=== PATIENT | female | born 1965 | race American Indian/Alaskan Native ===

== ENCOUNTER 2017-03-28 08:13 | Day surgery (SDC) | payer BC ==
[2017-03-24 12:27] LABS: Basophils % (Auto) 0.3 % (0.0-1.8); Eosinophils % (Auto) 0.4 % (0.0-4.3); Hematocrit 38.5 % (30.3-42.9); Mean Corpuscular HGB Conc 34 % (30-34); Mean Corpuscular Hemoglobin 33 pg (28-32); Mean Corpuscular Volume 99 fl (79-97); Platelet Count 203 K/mm3 (140-440); Red Cell Distribution Width 15.9 % (13.2-15.2); White Blood Count 4.7 K/mm3 (4.5-11.0)
--- NOTE | 2017-03-24 12:36 | Anesthesia Consultation ---
Anesthesia Consult and Med Hx Date of service: 03/24/17 - Airway Anesthetic Teeth Evaluation: Good, Partials ROM Head & Neck: Adequate Mental/Hyoid Distance: Adequate Mallampati Class: Class II Intubation Access Assessment: Probably Good - Pulmonary Exam CTA: Yes - Cardiac Exam Cardiac Exam: RRR - Pre-Operative Health Status ASA Pre-Surgery Classification: ASA2 Proposed Anesthetic Plan: General - Pulmonary Hx Smoking: No Hx Asthma: No Hx Sleep Apnea: No - Cardiovascular System Hx Hypertension: Yes - Central Nervous System Hx Seizures: No CVA: No Hx Psychiatric Problems: No - Endocrine Hx Renal Disease: No Hx End Stage Renal Disease: No Hx Cirrhosis: No Hx Liver Disease: No Hx Non-Insulin Dependent Diabetes: Yes Hx Thyroid Disease: Yes (S/P THYROIDECTOMY) Hx Hypothyroidism: Yes - Hematic Hx Anemia: Yes - Other Systems Hx Cancer: No Hx Obesity: No
[2017-03-24 12:43] LABS: Anion Gap 22 mmol/L; BUN/Creatinine Ratio 21.42; Blood Urea Nitrogen 15 mg/dL (7-17); Calcium 8.7 mg/dL (8.4-10.2); Carbon Dioxide 20 mmol/L (22-30); Chloride 96.2 mmol/L (98-107); Glucose 149 mg/dL (65-100); Potassium 3.9 mmol/L (3.6-5.0); Sodium 134 mmol/L (137-145)
--- NOTE | 2017-03-27 18:19 | History and Physical Report ---
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 of genital herpes: no Partner hx. of genital herpes: no Hx of STD: None Active Medications (reviewed today): FARXIGA TABS (DAPAGLIFLOZIN PROPANEDIOL TABS) GLYBURIDE TABS (GLYBURIDE TABS) OXYCODONE-ACETAMINOPHEN 5-325 MG TABS (OXYCODONE-ACETAMINOPHEN) 1-2po q6h VITAMIN D 1000 UNIT TABS (CHOLECALCIFEROL) VICTOZA SOLN (LIRAGLUTIDE SOLN) NASONEX SUSP (MOMETASONE FUROATE SUSP) SYNTHROID TABS (LEVOTHYROXINE SODIUM TABS) SPIRONOLACTONE TABS (SPIRONOLACTONE TABS) MULTIVITAMINS ORAL CAPS (MULTIPLE VITAMIN) IRON CR-TABS (FERROUS FUMARATE CR-TABS) SINGULAIR TABS (MONTELUKAST SODIUM TABS) MEDROXYPROGESTERONE ACETATE 10 MG TABS (MEDROXYPROGESTERONE ACETATE) 1 po bid Current Allergies (reviewed today): IBUPROFEN (Critical) DEMEROL (Critical) * SEAFOOD (Critical) Past Medical History: Reviewed history from 03/23/2015 and no changes required: Hypothyroidism PCOS seasonal allergies Diabetes, Type 2 Anemia Noninvasive peripheral artery studies on LE's = decreased flow, increase risk for stasis and dvt:NO ESTROGEN BRCA negative Past Surgical History: Reviewed history from 04/01/2016 and no changes required: Myomectomy thyroidectomy corneal transplant D&C: (04/21/2011) Hysteroscopy: (04/21/2011) Knee Arthroscopy (10/17/2011)(L) d/t torn meniscus cataract (2016) Family History Summary: Reviewed history Last on 03/17/2014 and no changes required:03/27/2017 Other family member - Has No Family History of Biliary Tract Cancer - Entered On : 12/28/2016 Other family member - Has No Family History of Breast Cancer - Entered On: 2016 Other family member - Has No Family History of Brain Cancer - Entered On: 2016 Other family member - Has No Family History of Colon Cancer - Entered On: 2016 Other family member - Has No Family History of DVT/PE on OCP - Entered On: 2016 Other family member - Has No Family History of Kidney/Urinary Tract Cancer - Entered On: 12/28/2016 Other family member - Has No Family History of Pancreatic Cancer - Entered On: Other family member - Has No Family History of Stomach Cancer - Entered On: 2016 Other family member - Has No Family History of Small Bowel Cancer - Entered On: 12/28/2016 Other family member - Has No Family History of Uterine Cancer - Entered On: 2016 General Comments - FH: Family History of Ovarian Cancer:PGM, maternal great aunt No Family History of Colon Cancer No Family History of Breast Cancer Social History: Reviewed history from 04/01/2016 and no changes required: Patient is single Smoking History: Patient has never smoked. Risk Factors: Smoked Tobacco Use: Never smoker Smokeless Tobacco Use: Never Passive smoke exposure: no Drug use: no HIV high-risk behavior: no Alcohol use: no Exercise: yes Seatbelt use: 100 % Previous Tobacco Use: Signed On 01/02/2017 Smoked Tobacco Use: Never smoker Passive smoke exposure: no Drug use: no HIV high-risk behavior: no Previous Alcohol Use: Signed On 01/02/2017 Alcohol use: no Exercise: yes Times per week: 2 times per wk Type of Exercise: walking,run Seatbelt use: 100 % Colonoscopy History: Date of Last Colonoscopy: 03/25/2015 Mammogram History: Date of Last Mammogram: 06/17/2016 PAP Smear History: Date of Last PAP Smear: 04/01/2016 Review of Systems General Denies fever, chills, sweats, anorexia, fatigue, weakness, malaise, weight loss and sleep disorder. Complains of abnormal vaginal bleeding. Denies vaginal discharge, incontinence, dysuria, hematuria, urinary frequency, amenorrhea, menorrhagia, pelvic pain, genital sores, decreased libido , painful periods, painful sex, urinary urgency, hot flashes, vaginal dryness, vaginal itching and vaginal odor. CV Denies chest pains, palpitations, syncope, dyspnea on exertion, orthopnea, PND and peripheral edema. Resp Denies cough, dyspnea at rest, excessive sputum, hemoptysis, wheezing and pleurisy. GI Denies nausea, vomiting, diarrhea, constipation, change in bowel habits, abdominal pain, melena, hematochezia, jaundice, gas/bloating, indigestion/ heartburn, dysphagia and odynophagia. Endo Denies cold intolerance, heat intolerance, polydipsia, polyphagia, polyuria and unusual weight change. Breast Denies left breast lump, right breast lump, nipple discharge, bloody discharge from nipple, breast pain, abnormal mammogram and breast enlargement. MS Denies back pain, joint pain, joint swelling, muscle cramps, muscle weakness, stiffness, arthritis, sciatica, restless legs, leg pain at night and leg pain with exertion. Derm Denies rash, itching, dryness and suspicious lesions. Neuro Denies paralysis, paresthesias, headache, seizures, tremors, vertigo, transient blindness, frequent falls, frequent headaches and difficulty walking. Psych Denies depression, anxiety, irritability and mood swings. Eyes Denies blurring, diplopia, irritation, discharge, vision loss, eye pain and photophobia. ENT Denies earache, ear discharge, tinnitus, decreased hearing, nasal congestion, nosebleeds, sore throat and hoarseness. Allergy Denies urticaria, allergic rash, hay fever and recurrent infections. Heme Denies abnormal bruising, bleeding and enlarged lymph nodes. Physical Exam Appearance: well developed, well nourished, no acute distress Other Exams Breast exam: no masses or nipple discharge Lungs: no rales, rhonchi, or wheezes Heart: S1, S2, no murmur, rub, or gallop Abdomen: soft, non-tender, no masses Appearance: obese Skin: no ulcers, xanthomas Lymph: no cervical, axillary, or inguinal adenopathy Extremities: normal alignment, no joint enlargement, crepitus, masses or tenderness; normal tone and strength Genitourinary Exam Vulva: normal, no lesions or discharge Urethral meatus: normal size and location, no lesions or discharge Urethra: no discharge Bladder: no cystocele Vagina: normal appearance, no discharge, lesions. No evidence of cystocele or rectocele. Cervix: normal appearance, no lesions, no discharge Uterus: fixed Adnexa: unable to palpate due to obesity Impression & Recommendations: Problem # 1: Excessive and frequent menstruation with irregular cycle (ICD- 626.6) (AST70-E05.1) Diagnosis explained to patient . Questions answered. Discussed with patient various medical, surgical and radioloigal therapies common for treatment: Hormonal/medical therapy, fibroid embolization, removal of fibroids or hysterectomy. She completed a UFE and the recommendation by the radiologist was to perform a hysteroscopy D&C to remove residual tissue. She desires conservative therapy in the form of Hysteroscopy D&C with endometrial ablation and other indicated procedures She was informed her bleeding may persist or recur. Patient voiced understanding and agrees with plan of care Consent reviewed and signed . Possible laparoscopy or laparotomy explained to patient. The risks and alternatives for this surgery were reviewed with the patient. She was informed of possible bleeding, infection, injury to bowel, bladder, ureters or other adjacent organs. The patient was instructed/informed the following: The normal length of hospital stay for this procedure. Nothing to eat or drink after midnight the evening prior to surgery. Clear liquids the day before surgery. Pre-op instruction sheets given. Wound care instructions given. Infection precautions reviewed, patient to call for any signs or symptoms of infection. The usual discomforts associated with this procedure were detailed. Proper use of pain medicines was reviewed. Patient was given ample opportunity to have all her questions answered before signing informed consent. Problem # 2: Endometrial mass (ICD-236.0) (YIG12-R97.0) Problem # 3: Fibroids of uterus; Intramural (ICD-218.1) (JXL41-T77.1) Medications Added to Medication List This Visit: 1) Farxiga Tabs (Dapagliflozin propanediol tabs) 2) Glyburide Tabs (Glyburide tabs) 3) Oxycodone-acetaminophen 5-325 Mg Tabs (Oxycodone-acetaminophen) .... 1-2po q6h Prescriptions: OXYCODONE-ACETAMINOPHEN 5-325 MG TABS (OXYCODONE-ACETAMINOPHEN) 1-2po q6h #15 x 0 Entered and Authorized by: Semea Panchal MD Method used: Print then Give to Patient RxID: [id number] Medications and Allergies Allergies Allergy/AdvReac Type Severity Reaction Status Date / Time meperidine HCl [From Demerol] Allergy Hives Unverified 03/21/17 12:30 ibuprofen [From Motrin] AdvReac Swelling Unverified 03/21/17 12:30 OF FACE Home Medications Medication Instructions Recorded Confirmed Last Taken Type Levothyroxine [Synthroid] 125 mcg PO QAM 05/14/15 03/21/17 05/13/15 History Liraglutide [Victoza 2-Ward] 1.8 mg PO DAILY 05/14/15 03/21/17 05/13/15 History Spironolactone [Aldactone] 100 mg PO QDAY 05/14/15 03/21/17 05/14/15 History Ferrous Sulfate [Feosol] 325 mg PO QDAY 03/21/17 03/21/17 Unknown History Glimepiride [Amaryl] 4 mg PO DAILY 03/21/17 03/21/17 Unknown History RX: Dapagliflozin Propanediol (Nf) 10 mg PO DAILY 03/21/17 03/21/17 Unknown History [Farxiga (Nf)] Active Meds: Active Medications Famotidine (Pepcid) 20 mg PO PREOP NR Stop: 03/28/17 23:01 Sodium Chloride (Nacl 0.9% 1000 Ml) 1,000 mls @ 75 mls/hr IV DIRECT LAUREN Cefazolin Sodium (Ancef/Sterile Water 2 Gm/20 Ml) 2 gm in 20 mls @ 80 mls/hr IV PREOP NR PRN Reason: Protocol Stop: 03/28/17 23:59 Midazolam HCl (Versed) 2 mg IV PREOP NR Stop: 03/28/17 23:59 Exam Vital Signs Temp Pulse Resp BP 98.3 F 76 14 120/78 03/24/17 12:00 03/24/17 12:00 03/24/17 12:00 03/24/17 12:00 Results - Labs 03/24/17 11:52 03/24/17 11:52 Assessment and Plan - Patient Problems (1) Menometrorrhagia Status: Chronic (2) Endometrial mass Status: Chronic (3) Fibroids Status: Chronic Qualifiers: Uterine leiomyoma location: U
[~2017-03-28 08:13] MED LIST: ANCEF/STERILE WATER 2 GM/20 ML 2 GM/20 ML SYRINGE IV NR; NACL 0.9% 1000 ML 1,000 ML IV SCH; PEPCID PO NR; VERSED IV NR
[2017-03-28] MEDS ORDERED: NACL BACTERIOSTATIC INFILTRATI ONE (09:19)
[2017-03-28] MEDS ORDERED: DILAUDID ONE (10:44)
[2017-03-28] MEDS ORDERED: DIPRIVAN 10 MG/ML IV ONE (10:44)
[2017-03-28] MEDS ORDERED: XYLOCAINE MPF 2% ONE (10:45)
--- NOTE | 2017-03-28 10:57 | Anesthesia Day of Surgery ---
Anesthesia Day of Surgery - Day of Surgery Patient Examined: Yes Patient H&P Reviewed: Yes Patient is NPO: Yes
[2017-03-28] MEDS ORDERED: ePHEDrine SULFATE ONE (11:16)
[2017-03-28] MEDS ORDERED: NACL 0.9% IR ONE (11:45)
[2017-03-28] MEDS ORDERED: ZOFRAN ONE (11:49)
--- NOTE | 2017-03-28 12:13 | Discharge Summary ---
Providers - Providers Date of discharge: 03/28/17 Attending physician: FELIPE PENA Primary care physician: PONCE HERRERA Hospitalization Condition: Good Procedures: Hysteroscopy D&C Disposition: DISCHARGED TO HOME OR SELFCARE - Discharge Diagnoses (1) Menometrorrhagia Status: Chronic Comment: Spoke with patient and PACU. Operative findings and procedure explained. Questions were answered. Also spoke with patient's sister prior to speaking with patient. Operative findings and procedure was also explained to her. She was given postop instructions and precautions. (2) Endometrial mass Status: Chronic (3) Fibroids Status: Chronic Qualifiers: Uterine leiomyoma location: U Core Measure Documentation - Palliative Care Palliative Care/ Comfort Measures: Not Applicable - Core Measures Any of the following diagnoses?: none Exam - Constitutional Vitals: Temp Pulse Resp BP Pulse Ox 98 F 80 12 112/65 99 03/28/17 09:12 03/28/17 09:12 03/28/17 09:12 03/28/17 09:12 03/28/17 09:12 General appearance: Present: no acute distress - Neck Neck: Present: supple - Respiratory Respiratory effort: normal - Cardiovascular Rhythm: regular - Extremities Extremities: no ischemia, No edema - Abdominal General gastrointestinal: Present: soft, non-tender Plan Activity: other (No sex, no driving x3days) Weight Bearing Status: Non-Weight Bearing Diet: diabetic (eat small meals frequently) Special Instructions: no heavy lifting Follow up with: PONCE HERRERA MD [Primary Care Provider] - 7 Days FELIPE PENA MD [Staff Physician] - (as scheduled)
--- NOTE | 2017-03-28 12:34 | Operative Report ---
Operative Report Operative Report: Date of procedure: 03/28/2017 Pre-operative diagnosis: 1. Menometrorrhagia 2. Uterine fibroids status post uterine fibroid embolization Post-operative diagnosis: 1. Menometrorrhagia 2. Uterine fibroids status post uterine fibroid embolization 3. Distorted appearing endometrial cavity with possible submucosal fibroid 4. Possible scarring of posterior uterine cavity Procedure name(s): Dilation and curettage with hysteroscopy Surgeon: Seema Panchal MD Obiee Consultant: [] Anesthesia: General anesthesia Findings: Uterus was sounded to 9 cm. Possible left lateral submucosal fibroid. Irregular appearance to the posterior uterine cavity. Fundus of uterus appeared to be normal, tubal ostia were visualized. On initial introduction of the hysteroscope the right ostia was anterior as though the right anterior of the uterus was adhered to the anterior uterine wall. There appeared to be submucosal fibroid just superior to the internal os of the cervix noted on the left lateral aspect of the uterus. The posterior of the uterine cavity appeared to have irregular tissue possibly consistent with scarring from her previous myomectomy. The decision was made to attempt resection of the fibroid due to concerns for perforation into the lateral uterine vessels that may have necessitated emergency hysterectomy. Because of the distortion of the endometrial cavity the decision was made not to perform NovaSure ablation. Complications: None EBL: Minimal Distension fliud: Normal saline Fluid deficit: 0mL Procedure: After risks, benefits, complications, consequences and alternatives for this procedure were discussed with the patient, and she voiced her understanding and desires to proceed she was taken to the OR where general anesthesia was induced. She was placed in the dorsal lithotomy position. She was then prepped and draped in the usual sterile fashion. Timeout was performed. Aguiar catheter was introduced into the bladder. A bivalve speculum was introduced into the vagina. The anterior lip of the cervix was grasped with a single-tooth tenaculum, and the uterus was sounded to approximately 9 cm. The cervix was then progressively dilated to allow the diagnostic hysteroscope. The above findings were noted. Curettage was performed. Tissue was sent to pathology as a permanent. The hysteroscope was reintroduced into the uterine cavity. No obvious evidence of perforation was noted. All instruments were removed. No bleeding was noted from the tenaculum site. The patient tolerated the procedure well to recovery in stable condition. Counts were correct x3.
[2017-03-28] MEDS ORDERED: PERCOCET 5/325 PO PRN (12:47)
[2017-03-28 13:49] VITALS: BP 114/76
== END 2017-03-28 13:28 | disposition home or self-care (01) ==
LOC: OR 08:13
PROVIDERS: ATTEND Obstetrics & Gynecology
DX: N92.1 Excessive and frequent menstruation with irregular cycle (principal); I10 Essential (primary) hypertension; E11.9 Type 2 diabetes mellitus without complications; E03.9 Hypothyroidism, unspecified; D64.9 Anemia, unspecified; Z94.7 Corneal transplant status; Z98.890 Other specified postprocedural states
CPT/HCPCS: 36415; 58558; 80048; 81025; 82962; 85025; 86850; 86900; 86901; 88305; A4217; J0690; J1170; J2250; J2405; J2704; J7030

== ENCOUNTER 2017-04-25 10:07 | Outpatient (CLI) | payer BC ==
--- NOTE | 2017-04-25 13:23 | Cat Scan Report ---
CT scan of abdomen and pelvis without IV contrast: History: Abdominal pain. Findings: Normal lung bases. No pleural or pericardial effusion. Normal liver spleen pancreas and gallbladder. Normal adrenals kidney parenchyma and bladder. No free intraperitoneal fluid or air. Calcification in the uterus probably suggestive of fibroids. Gaseous colon with moderate volume stool in colon. No evidence of appendicitis or diverticulitis. No bowel distention. Impression: Probable peptic disease. Fibroid uterus. Gaseous colon with stool in colon.
== END 2017-04-25 10:08 | disposition home or self-care (01) ==
LOC: CT 10:07
PROVIDERS: ATTEND Internal Medicine
DX: D25.9 Leiomyoma of uterus, unspecified (principal); R63.4 Abnormal weight loss
CPT/HCPCS: 74176

== ENCOUNTER 2017-05-02 13:39 | Outpatient (CLI) | payer BC ==
--- NOTE | 2017-05-02 15:16 | Mammography Report ---
Bilateral diagnostic mammogram: Compared to 04/11/16. Sonographic examination of abdomen mass. History: Left breast mass approximate 3:00 position. Findings: Heterogeneous breast parenchyma bilaterally without significant interval change. No mass or microcalcification. Normal axilla. Sonographic examination of the palpable area does not reveal any cystic or solid mass. Impression: Benign findings. Annual followup recommended. BI-RADS CATEGORY: 2 = Benign ACR BI-RADS MAMMOGRAPHIC CODES: 0 = Needs additional imaging evaluation; 1 = Negative; 2 = Benign; 3 = Probably benign; 4 = Suspicious; 5 = Malignant; 6 = Known biopsy-proven malignancy COMMENT: 1. Dense breast tissue, i.e., adenosis, fibrocystic changes, etc., may obscure an underlying neoplasm. 2. Approximately 10% of cancers are not detected with mammography. 3. A negative mammography report should not delay biopsy if a clinically suspicious mass is present. COMMENT: Patient follow-up letters are generated in [employer].
== END 2017-05-02 13:40 | disposition home or self-care (01) ==
LOC: MAMMO 13:39
PROVIDERS: ATTEND Obstetrics & Gynecology
DX: N63 Unspecified lump in breast (principal); I10 Essential (primary) hypertension; D25.9 Leiomyoma of uterus, unspecified
CPT/HCPCS: 76642; G0204; 77066

== ENCOUNTER 2017-07-10 07:22 | Outpatient (CLI) | payer BC ==
--- NOTE | 2017-07-10 11:27 | Magnetic Resonance Report ---
MR PELVIS WITH AND WITHOUT CONTRAST HISTORY: Leiomyoma of uterus TECHNIQUE: Multiple T1 and T2-weighted images with and without fat suppression. Post contrast T1 fat sat in all 3 planes. FINDINGS: The uterus is anteverted. The uterus is moderately enlarged measuring 13.2 x 7.5 x 6.2 cm. 4 uterine fibroids are identified. 3 of these fibroids have a submucosal component. A 3.7 cm fibroid is identified in the left lateral wall. A second 2.7 cm fibroid is identified in the left lateral wall. A 4.1 cm fibroid is identified in the uterine fundus. A 1 cm subserosal fibroid is also identified in the uterine fundus. The 3 larger fibroids mildly displace the endometrial stripe. There is no appreciable enhancement of the fibroids following IV gadolinium. No cystic change or calcifications. The endometrial stripe is displaced but normal in thickness. The adnexa are unremarkable. No pelvic fluid collection. The visualized bowel loops, bladder and vascular structures are within normal limits. Bony signal within the pelvis is within normal limits. IMPRESSION: 4 uterine fibroids are identified as outlined above which do not enhance following IV gadolinium.
== END 2017-07-10 07:23 | disposition home or self-care (01) ==
LOC: MRI 07:22
PROVIDERS: ATTEND Radiology Diagnostic Radiology
DX: D25.0 Submucous leiomyoma of uterus (principal); D25.2 Subserosal leiomyoma of uterus; N85.2 Hypertrophy of uterus
CPT/HCPCS: 72197; A9577

== ENCOUNTER 2017-07-10 10:08 | Emergency (ER) | payer BC ==
[2017-07-10] MEDS ORDERED: BENADRYL IV ONE (10:14)
[2017-07-10] MEDS ORDERED: PEPCID IV ONE (10:14)
--- NOTE | 2017-07-10 10:14 | Emergency Department Report ---
Chief Complaint: Allergic Reaction Stated Complaint: ALLERGIC REACTION Time Seen by Provider: 07/10/17 10:11 - HPI History of Present Illness: PT states she had an allergic reaction to MRI contrast. PT c/o left eye swelling Dr Fuentes is her eye surgeon for her left eye corneal transplant - ROS Review of Systems: + sneezing + coughing + swelling to L eye - Exam Physical Exam: + chemosis MSE screening note: Focused history and physical exam performed. Due to findings the following was ordered: meds ED Disposition for MSE Condition: Stable
--- NOTE | 2017-07-10 10:56 | Event Note ---
Date: 07/10/17 Patient with a history of uterine fibroids status post embolization here for surveillance MRI. During the examination, the patient sneezed twice and once again at the conclusion of the exam. Following her MRI, the patient was noted to have focal left eye swelling involving the globe. This does not appear to involve the periorbital tissues. Patient was then transferred to the emergency department for possible contrast reaction for which she is being treated appropriately with medications. An ophthalmology consult was also placed a patient has a history of a left corneal transplant. Following treatment for contrast reaction, the patient will need follow-up with her api architect with possible transfer to Hospital where her api architect practices.
--- NOTE | 2017-07-10 10:58 | Emergency Department Report ---
ED Allergic Reaction HPI - General Chief complaint: Allergic Reaction Stated complaint: ALLERGIC REACTION Time Seen by Provider: 07/10/17 10:11 Source: patient Mode of arrival: Ambulatory Limitations: No Limitations - History of Present Illness Initial Comments: 52-year-old female with a past medical history of diabetes, migraines, and hypertension presents to the hospital complaining of possible allergic reaction after receiving the MRI contrast. Patient is receiving outpatient MRI of the pelvis for evaluation of uterine fibroids. After receiving the IV contrast patient sneezed 3 times, felt tightness in her chest, hoarseness in her throat, and then noticed her left eye swelling. No complaints of respiratory distress or rash. Patient has received MRI with contrast in the past however, unsure if the MRI contrast used today is different. Her meat hanger/cornea specialist is Dr. Luna associated with [facility] - Related Data Home Medications Medication Instructions Recorded Confirmed Last Taken Spironolactone [Aldactone] 100 mg PO QDAY 05/14/15 07/10/17 07/10/17 Dapagliflozin Propanediol (Nf) 10 mg PO DAILY 03/21/17 07/10/17 07/10/17 [Farxiga (Nf)] Ferrous Sulfate [Feosol] 325 mg PO QDAY 03/21/17 07/10/17 07/09/17 Furosemide [Lasix] 20 mg PO QDAY 07/10/17 07/10/17 07/09/17 Levothyroxine Sodium 137 mcg PO QAM 07/10/17 07/10/17 07/10/17 [Levothyroxine] Previous Rx's Medication Instructions Recorded Last Taken Type Famotidine [Pepcid] 20 mg PO BID #10 tablet 07/10/17 Unknown Rx diphenhydrAMINE [Benadryl CAP] 25 mg PO Q6HR PRN #20 capsule 07/10/17 Unknown Rx predniSONE [Deltasone] 40 mg PO QDAY 5 Days 07/10/17 Unknown Rx Allergies Allergy/AdvReac Type Severity Reaction Status Date / Time meperidine HCl [From Demerol] Allergy Hives Verified 03/28/17 09:32 pollen extracts Allergy Itching Unverified 07/10/17 07:23 shrimp Allergy Unknown Unverified 07/10/17 07:23 ibuprofen [From Motrin] AdvReac Swelling Verified 03/28/17 09:32 OF FACE ED Review of Systems ROS: Stated complaint: ALLERGIC REACTION Other details as noted in HPI Comment: All other systems reviewed and negative Other: Constitutional: No fevers chills Eyes: as per hpi ENT: as per hpi Neck: Denies pain Respiratory: Denies cough wheezing Cardiovascular: Denies chest pain, palpitations, syncope GI: Denies abdominal pain, nausea, vomiting, diarrhea : Denies dysuria Musculoskeletal: Denies back pain, joint swelling Skin: Denies rash, lesions, erythema Neurologic: Denies headache, numbness, weakness Psychiatric: Denies suicidal ideation, hallucinations ED Past Medical Hx - Past Medical History Hx Hypertension: Yes Hx Diabetes: Yes (since 2011) Hx Liver Disease: No Hx Renal Disease: No Hx Headaches / Migraines: Yes (past hx migraines) Hx Seizures: No Hx Asthma: No Hx HIV: No Additional medical history: left Cornea transplant 2011. left Cataract surgery 2016 - Social History Smoking Status: Never Smoker Substance Use Type: None - Medications Home Medications: Home Medications Medication Instructions Recorded Confirmed Last Taken Type Spironolactone [Aldactone] 100 mg PO QDAY 05/14/15 07/10/17 07/10/17 History Dapagliflozin Propanediol (Nf) 10 mg PO DAILY 03/21/17 07/10/17 07/10/17 History [Farxiga (Nf)] Ferrous Sulfate [Feosol] 325 mg PO QDAY 03/21/17 07/10/17 07/09/17 History Famotidine [Pepcid] 20 mg PO BID #10 tablet 07/10/17 Unknown Rx Furosemide [Lasix] 20 mg PO QDAY 07/10/17 07/10/17 07/09/17 History Levothyroxine Sodium 137 mcg PO QAM 07/10/17 07/10/17 07/10/17 History [Levothyroxine] diphenhydrAMINE [Benadryl CAP] 25 mg PO Q6HR PRN #20 capsule 07/10/17 Unknown Rx predniSONE [Deltasone] 40 mg PO QDAY 5 Days 07/10/17 Unknown Rx ED Physical Exam - General Limitations: No Limitations - Other Other exam information: General: No limitations, patient is alert in no acute distress Head exam: Atraumatic, normocephalic Eyes exam: Left eye chemosis on the lower part of the cornea. Pupils equal reactive to light. Extraocular movements intact. Patient denies decrease in her vision ENT: Moist mucous membrane, mild uvular swelling, no stridor + hoarseness Neck exam: Normal inspection, full range of motion, no meningismus nontender Respiratory exam: Clear to auscultation bilateral, no wheezes, rales, crackles Cardiovascular: Normal rate and rhythm, normal heart sounds Abdomen: Soft, nondistended, and nontender, with normal bowel sounds, no rebound, or guarding Extremity: Full range of motion normal inspection no deformity Back: Normal Inspection, full range of motion, no tenderness Neurologic: Alert, oriented x3, cranial nerves intact, no motor or sensory deficit Psychiatric: normal affect, normal mood Skin: Warm, dry, intact, no rash ED Course Vital Signs 07/10/17 07/10/17 07/10/17 10:13 11:11 11:15 Temperature 97.5 F L Pulse Rate 79 Respiratory 16 Rate Blood Pressure 124/85 125/87 O2 Sat by Pulse 100 100 100 Oximetry 07/10/17 11:16 Temperature Pulse Rate Respiratory 18 Rate Blood Pressure O2 Sat by Pulse 99 Oximetry - Reevaluation(s) Reevaluation #1: 07/10/17 13:17 pt tx with solumedrol/pepcid/benadryl obs for hrs. mild improvement in throat tightness. Pt informed of 3:30 f/u plans pending improved allergy sx. Decadron ordered and shortly afterwards. pt states feeling better plan to obs till 2:30, if asx d/c for f/u with optho pt concerned of lack of food (diabetic). pt d/gerald insulin pump for MRI. glucose 206 at this time. Pt was NPO pending resolution of throat sx. Glucose not significantly elevated at this time. Reevaluation #2: 07/10/17 14:17 Patient states symptoms continue to improve. I believe patient is stable for discharge. We'll prescribe medications for acute allergic reaction and discharged to follow-up ophthalmology - Consultations Consultation #1: 07/10/17 13:01 received call back from [facility] for Dr luna. Dr Samaniego rec f/u today at [facility] office at 3:30 pm today once pt is stable and cleared for d/c (pt states she knows where the office is located ED Medical Decision Making - Medical Decision Making Plan discharge patient home to follow-up with the meat hanger at 3:30 - Differential Diagnosis contrast allergy Critical Care Time: No Critical care attestation.: If time is entered above; I have spent that time in minutes in the direct care of this critically ill patient, excluding procedure time. ED Disposition Clinical Impression: Allergic reaction to contrast dye, Chemosis of conjunctiva Disposition: - TO HOME OR SELFCARE Is pt being admited?: No Does the pt Need Aspirin: No Condition: Stable Instructions: Allergies (ED) Additional Instructions: Take the medication as prescribed. Continue to monitor glucose closely because prednisone may cause your glucose to be more elevated. Return if symptoms worsen. Go to the [facility] ophthalmology office at 3:30p today to be further evaluated. Prescriptions: diphenhydrAMINE [Benadryl CAP] 25 mg PO Q6HR PRN #20 capsule PRN Reason: Allergy Symptoms Famotidine [Pepcid] 20 mg PO BID #10 tablet predniSONE [Deltasone] 40 mg PO QDAY 5 Days Referrals: MD Danette [Other] - 07/10/17 3:30 am PRIMARY MD JEYSON [Primary Care Provider] - 2-3 Days Time of Disposition: 14:23
[2017-07-10] MEDS ORDERED: DECADRON IV ONE (12:54)
[2017-07-10 15:06] VITALS: BP 123/83
== END 2017-07-10 15:05 | disposition home or self-care (01) ==
LOC: ED 10:08
DX: H11.422 Conjunctival edema, left eye (principal); T50.8X5A Adverse effect of diagnostic agents, initial encounter; I10 Essential (primary) hypertension; E11.9 Type 2 diabetes mellitus without complications; G43.909 Migraine, unspecified, not intractable, without status migrainosus; Z88.6 Allergy status to analgesic agent; Z91.018 Allergy to other foods; Y92.89 Other specified places as the place of occurrence of the external cause
CPT/HCPCS: 82962; 96374; 96375; 99283; J1100; J1200; J2930

== ENCOUNTER 2018-01-26 11:21 | Outpatient (CLI) | payer BC ==
[2018-01-26 11:55] LABS: Blood Urea Nitrogen 18 mg/dL (7-17)
--- NOTE | 2018-01-26 17:14 | Cat Scan Report ---
FINAL REPORT EXAM: CT ABDOMEN PELVIS W CON HISTORY: LEIOMYOMA OF UTERUS TECHNIQUE: CT of the abdomen and pelvis with IV contrast. Coronal and sagittal reconstructed imaging provided. PRIORS: None currently available. FINDINGS: ABDOMEN: Fatty liver. No suspicious enhancing lesions. Distended gallbladder. Possible gallstone. No wall thickening. Stomach, spleen, pancreas, and adrenals are unremarkable. Kidneys are unremarkable. No hydronephrosis. No suspicious lesions. There is no abdominal aortic aneurysm. No dissection. IVC is unremarkable. There is no periaortic or retroperitoneal adenopathy or mass. [id number] stool. No wall thickening or inflammatory changes. Terminal ilium is unremarkable. Appendix is normal. Small bowel loops are unremarkable. No obstructive pattern. No free air. No free fluid. Mesentery is unremarkable. PELVIS: Oval low-attenuation lesion in the left pelvis on series 3:125 measures 2.7 cm and probably represents a left ovary with ovarian cyst. Heterogeneous appearance to the uterus identified. Low-attenuation area in the uterus may represent a degenerating fibroid or fluid within the endometrial canal. Calcifications probably represent degenerated fibroids. Bladder is unremarkable. There is no pelvic mass or adenopathy. Inguinal regions are unremarkable. Bones: No suspicious osseous lesions on this limited examination of the skeleton. Metastatic disease better evaluated with bone scan. Degenerative changes are in the spine. IMPRESSION: Heterogeneous appearing uterus with calcifications and low-attenuation areas which may represent degenerated and degenerating fibroids. Differential diagnosis would include fluid or blood in the endometrial canal. Tumor is not excluded. Pelvic ultrasound or MRI may be helpful for further evaluation. Probable left ovary with ovarian cyst. Fatty liver. Gallstone and distended gallbladder. No CT evidence for cholecystitis. Correlation with gallbladder ultrasound may be helpful clinically indicated.
== END 2018-01-26 11:22 | disposition home or self-care (01) ==
LOC: CT 11:21
PROVIDERS: ATTEND Radiology Diagnostic Radiology
DX: K80.20 Calculus of gallbladder without cholecystitis without obstruction (principal); K76.0 Fatty (change of) liver, not elsewhere classified; N32.89 Other specified disorders of bladder; M47.899 Other spondylosis, site unspecified
CPT/HCPCS: 36415; 74177; 82565; 84520; Q9967

== ENCOUNTER 2018-03-30 09:29 | Outpatient (CLI) | payer BC ==
--- NOTE | 2018-03-30 13:06 | Ultrasound Report ---
ULTRASOUND ABDOMEN COMPLETE INDICATION: Epigastric pain. COMPARISON: None similar. FINDINGS: Abdominal sonography suggests mild diffuse hepatic echogenic coarsening with grossly preserved contours. No definite focal suspicious lesions or biliary dilatation, to the extent assessed. No gallstones or pericholecystic fluid. Mild gallbladder sludge though noted. Gallbladder wall thickness is 1.8 mm. Common bile duct is 5.6 mm. Homogenous spleen, approximately 8.2 cm in length. No ascites. Imaged pancreas grossly within normal limits. Unremarkable IVC. Nonaneurysmal abdominal aorta. No hydronephrosis with right kidney approximately 10 x 4.7 x 4.5 cm with cortical thickness of 1.2 cm while the left kidney is 10.7 x 3.9 x 5.7 cm with cortical thickness of 1.1 cm. CONCLUSION: No acute sonographic abnormality with mild gallbladder sludge and possible fatty liver, as described. Thank you for the opportunity to participate in this patient's care.
== END 2018-03-30 09:30 | disposition home or self-care (01) ==
LOC: US 09:29
PROVIDERS: ATTEND Specialist
DX: R10.13 Epigastric pain (principal)
CPT/HCPCS: 76700

== ENCOUNTER 2018-06-19 13:07 | Outpatient (CLI) | payer BC ==
--- NOTE | 2018-06-19 16:53 | Mammography Report ---
BILATERAL DIGITAL SCREENING MAMMOGRAM with CAD and DIGITAL BREAST TOMOSYNTHESIS (DBT) : 06/19/18 CLINICAL: Routine screening. COMPARISON:05/02/17 and 04/11/16 FINDINGS: The breasts are heterogeneously dense, which may obscure small masses. No mass, architectural distortion or suspicious calcifications. IMPRESSION: No mammographic evidence of malignancy. BI-RADS CATEGORY: 1 - - Negative RECOMMENDATION: Routine mammographic screening in one year. COMMENT: Patient follow-up letters are generated by our [employer] application.
== END 2018-06-19 13:08 | disposition home or self-care (01) ==
LOC: SPVWC 13:07
PROVIDERS: ATTEND Obstetrics & Gynecology
DX: Z12.31 Encounter for screening mammogram for malignant neoplasm of breast (principal); I10 Essential (primary) hypertension; E11.9 Type 2 diabetes mellitus without complications; E03.9 Hypothyroidism, unspecified; Z88.8 Allergy status to other drugs, medicaments and biological substances; Z88.6 Allergy status to analgesic agent; Z91.013 Allergy to seafood
CPT/HCPCS: 77063; 77067

== ENCOUNTER 2019-11-11 09:44 | Outpatient (CLI) | payer MEDICARE ==
--- NOTE | 2019-11-11 14:42 | Mammography Report ---
DIGITAL SCREENING MAMMOGRAM WITH CAD, 11/11/2019 INDICATION: Routine screening mammography. TECHNIQUE: Digital bilateral 2D mammography was obtained in the craniocaudal and mediolateral obliq ue projections. This examination was interpreted with the benefit of Computer-Aided Detection analysi s. COMPARISON: 06/19/2018 FINDINGS: Breast Density: The breasts are heterogeneously dense, which may obscure small masses. There is no evidence of dominant mass, suspicious calcifications or architectural distortion in eithe r breast. IMPRESSION: No mammographic evidence of malignancy. Follow up recommendation: Routine yearly BI-RADS Category 1: Negative. A "normal" or negative report should not discourage follow up or biopsy of a clinically significant f inding. A written summary of these findings will be mailed to the patient. The patient will be entered into a mammography reporting system which will generate a reminder letter for the patient's next appointmen t at the appropriate interval. The [employer] recommends yearly mammograms starting at age 40 and continuing as l erlin as a woman is in good health. Breast MRI is recommended for women with an approximate 20-25% or greater lifetime risk of breast cancer, including women with a strong family history of breast or ova yesy cancer or who have been treated for Hodgkin's disease. Signer Name: Smith Roberts MD Signed: 11/11/2019 2:38 PM Workstation Name: [id number]
== END 2019-11-11 09:45 | disposition home or self-care (01) ==
LOC: SPVWC 09:44
PROVIDERS: ATTEND Obstetrics & Gynecology
DX: Z12.31 Encounter for screening mammogram for malignant neoplasm of breast (principal)
CPT/HCPCS: 77067

== ENCOUNTER 2020-11-18 12:39 | Outpatient (CLI) | payer MEDICARE ==
--- NOTE | 2020-11-18 14:26 | Mammography Report ---
DIGITAL SCREENING MAMMOGRAM WITH CAD, 11/18/2020 CLINICAL INFORMATION / INDICATION: Routine screening mammography. TECHNIQUE: Digital bilateral 2D mammography was obtained in the craniocaudal and mediolateral obliqu e projections. This examination was interpreted with the benefit of Computer-Aided Detection analysis . COMPARISON: 11/11/2019 05/02/2017, 04/11/2016 FINDINGS: Breast Density: The breasts are heterogeneously dense, which may obscure small masses. No dominant mass, suspicious calcifications, or architectural distortion in either breast. No interval change. IMPRESSION: No mammographic evidence of malignancy. Follow up recommendation: Routine yearly BI-RADS Category 1: Negative. A "normal" or negative report should not discourage follow up or biopsy of a clinically significant f inding. A written summary of these findings will be mailed to the patient. The patient will be entered into a mammography reporting system which will generate a reminder letter for the patient's next appointmen t at the appropriate interval. The [employer] recommends yearly mammograms starting at age 40 and continuing as l erlin as a woman is in good health. Breast MRI is recommended for women with an approximate 20-25% or greater lifetime risk of breast cancer, including women with a strong family history of breast or ova yesy cancer or who have been treated for Hodgkin's disease. Signer Name: Jessica Branch MD Signed: 11/18/2020 2:21 PM Workstation Name: [id number]
== END 2020-11-18 12:40 | disposition home or self-care (01) ==
LOC: MAMMO 12:39
PROVIDERS: ATTEND Obstetrics & Gynecology
DX: Z12.31 Encounter for screening mammogram for malignant neoplasm of breast (principal)
CPT/HCPCS: 77067